=== PATIENT | male | born 1940 | race Caucasian/White ===

== ENCOUNTER 2017-01-03 07:16 | Emergency (ER) | payer MEDICARE, OTHER ==
[~2017-01-03] VITALS: Ht 177.8 cm; Wt 79.4 kg
[~2017-01-03 07:16] MED LIST: ASPI81CH43 GT; EZET10TA38 OR; OMEPRAZOLE; SUCR1TAB OR
[2017-01-03] MEDS ORDERED: KETOROLAC TROMETH 30 MG/ML 1ML VIAL IV ONE (10:00)
[2017-01-03 10:51] LABS: Basophils # (auto) 0 uL; Basophils % (auto) 0.1 % (0.0-2.0); Eosinophils # (auto) 0 uL; Eosinophils % (auto) 0.4 % (0.0-7.0); Hematocrit 39.9 % (41.0-53.0); Hemoglobin 13.5 g/dL (13.5-17.5); Lymphocytes % (auto) 13.4 % (10.0-50.0); Mean Corpuscular Hemoglobin 29.3 pg (28.0-32.0); Mean Corpuscular Hgb Conc. 33.8 g/dL (32.0-36.0); Mean Corpuscular Volume 86.7 fL (80.0-100.0); Monocytes # (auto) 0.7 uL; Monocytes % (auto) 9.7 % (0.0-12.0); Neutrophils # (auto) 5.6 uL; Neutrophils % (auto) 76.4 % (37.0-80.0); Platelet Count (auto) 230 10^3/uL (140-450); Red Cell Distribution Width 13.7 % (11.6-16.0); White Blood Cell 7.3 10^3/uL (4.4-10.8)
[2017-01-03 11:20] LABS: Albumin 3.6 g/dL (3.4-5.0); Anion Gap 8 (5-15); BUN/Creatinine Ratio 17.9; Blood Urea Nitrogen 20 mg/dL (7-18); Carbon Dioxide 27 mmol/L (21-32); Chloride 104 mmol/L (98-107); GFR African American 82 mL/min; GFR Non-African American 68 mL/min; Glucose 207 mg/dL (74-106); Potassium 4.4 mmol/L (3.5-5.1); Sodium 139 mmol/L (136-145)
[2017-01-03 11:47] LABS: Alkaline Phosphatase 81 U/L (45-117); Aspartate Aminotransferase 11 U/L (15-37); Bilirubin, Total 0.6 mg/dL (0.2-1.0); Total Protein 7.3 g/dL (6.4-8.2)
[2017-01-03 11:49] VITALS: BP 123/71
[2017-01-03 12:54] LABS: Urine Bilirubin Negative (Negative); Urine Blood Negative /uL (Negative); Urine Color Yellow (Yellow); Urine Ketone Negative (Negative); Urine Mucus FEW (None Seen); Urine Nitrite Negative (Negative); Urine RBC <1 /hpf (0 - 3); Urine Urobilinogen Normal (Negative); Urine pH 6.5 (5.0-8.0)
[2017-01-03 12:55] LABS: Urine Glucose 4+ mg/dL (Normal)
== END 2017-01-03 12:36 | disposition home or self-care (01) ==
LOC: ER 07:16
DX: K80.80 Other cholelithiasis without obstruction (principal); K21.9 Gastro-esophageal reflux disease without esophagitis; E78.5 Hyperlipidemia, unspecified; Z79.82 Long term (current) use of aspirin; Z79.899 Other long term (current) drug therapy
CPT/HCPCS: 36415; 71010; 74176; 80053; 81001; 84484; 85025; 93005

== ENCOUNTER → 2018-05-31 | Outpatient (CLI) | payer MEDICARE, OTHER ==
[~2018-05-31] MED LIST changes: +BUPIVACAINE 0.25% INJ 50ML VIAL ONE; +IOHEXOL 300 MG/ML 100ML BOTTLE IJ ONE; +LIDOCAINE 2% (LOCAL ANESTH.) PF 5ml SDV ONE; +methylPREDNISolone ACETATE 80 MG/ML VL ONE
== END | disposition home or self-care (01) ==
LOC: XYW 11:28
PROVIDERS: ATTEND Orthopaedic Surgery Adult Reconstructive Orthopaedic Surgery
DX: M12.811 Other specific arthropathies, not elsewhere classified, right shoulder (principal)
CPT/HCPCS: 73020; J1040; J2001; J3490; Q9967

== ENCOUNTER → 2019-12-03 | Outpatient (CLI) | payer MEDICARE, OTHER ==
[~2019-12-03] MED LIST changes: -BUPIVACAINE 0.25% INJ 50ML VIAL ONE; +EZET10TA24 OR; -EZET10TA38 OR; -IOHEXOL 300 MG/ML 100ML BOTTLE IJ ONE; -LIDOCAINE 2% (LOCAL ANESTH.) PF 5ml SDV ONE; -methylPREDNISolone ACETATE 80 MG/ML VL ONE
== END | disposition home or self-care (01) ==
LOC: XY 09:01
PROVIDERS: ATTEND Psychiatry & Neurology Neurology
DX: I65.23 Occlusion and stenosis of bilateral carotid arteries (principal); I63.9 Cerebral infarction, unspecified
CPT/HCPCS: 93886

== ENCOUNTER → 2019-12-27 | Outpatient (CLI) | payer MEDICARE, OTHER | END | disposition home or self-care (01) | LOC: XYW 08:42 | PROVIDERS: ATTEND Psychiatry & Neurology Neurology | DX: I08.2 Rheumatic disorders of both aortic and tricuspid valves (principal); I63.9 Cerebral infarction, unspecified | CPT/HCPCS: 93306 ==

== ENCOUNTER → 2020-02-26 | Outpatient (CLI) | payer MEDICARE, OTHER ==
[2020-02-26 16:29] LABS: Folate (Folic Acid) > 24.00 ng/mL (5.38-24)
== END | disposition home or self-care (01) ==
LOC: LAB 15:04
PROVIDERS: ATTEND Psychiatry & Neurology Neurology
DX: G62.9 Polyneuropathy, unspecified (principal)
CPT/HCPCS: 82607; 82746; 84155; 84165

== ENCOUNTER 2022-05-12 16:10 | Inpatient (IN) | payer MEDICARE, OTHER ==
[~2022-05-12] VITALS: Ht 177.8 cm; Wt 86.0 kg
[2022-05-12 17:34] LABS: Basophils # (auto) 0 10 ^3/uL (0-0.2); Basophils % (auto) 0.6 % (0.0-2.0); Eosinophils # (auto) 0.1 10 ^3/uL (0-0.8); Eosinophils % (auto) 1.8 % (0.0-7.0); Hematocrit 37.8 % (41.0-53.0); Hemoglobin 12.9 g/dL (13.5-17.5); Lymphocytes % (auto) 18.8 % (10.0-50.0); Mean Corpuscular Hemoglobin 29.7 pg (28.0-32.0); Mean Corpuscular Volume 87.3 fL (80.0-100.0); Monocytes # (auto) 0.5 10 ^3/uL (0-1.3); Monocytes % (auto) 9.4 % (0.0-12.0); Neutrophils # (auto) 3.6 10 ^3/uL (1.6-8.6); Neutrophils % (auto) 69.4 % (37.0-80.0); Nucleated Red Blood Cells % 0.1 %; Red Blood Cells 4.33 10^6/uL (4.5-5.90); Red Cell Distribution Width 14.1 % (11.8-14.3); White Blood Cell 5.2 10^3/uL (4.4-10.8)
[2022-05-12 17:52] LABS: Albumin 3.8 g/dL (3.4-5.0); BUN/Creatinine Ratio 25.2; Calcium 9.3 mg/dL (8.5-10.1); Magnesium 2.2 mg/dL (1.6-2.6); Potassium 4.7 mmol/L (3.5-5.1)
[2022-05-12 17:56] LABS: Bilirubin, Total 0.4 mg/dL (0.2-1.0); Total Protein 6.7 g/dL (6.4-8.2)
[2022-05-12] MEDS ORDERED: NITROGLYCERIN 0.4 MG SL TAB SL PRN (19:00)
[2022-05-12] MEDS ORDERED: HYDROcodone-ACET 5/325MG TAB PO PRN (19:00)
[2022-05-12] MEDS ORDERED: ONDANSETRON HCL 4 MG/2 ML VIAL IV PRN (19:00)
[2022-05-12] MEDS ORDERED: DOCUSATE SOD 100 MG CAP PO PRN (19:00)
[2022-05-12] MEDS ORDERED: ACETAMINOPHEN 325 MG TAB PO PRN (19:00)
[2022-05-12] MEDS ORDERED: MORPHINE SULFATE INJ 2 MG/ml SYRG IV PRN ×2 (19:00)
[2022-05-12] MEDS ORDERED: SODIUM CHLORIDE 0.9% 1,000 ML IV ONE (19:30)
[2022-05-12] MEDS: SODIUM CHLOR 0.9% PF (SALINE LOCK) 10ML VIAL/SYR IV SCH (22:00)
[2022-05-12 22:20] LABS: Urine WBC None Seen /hpf (0 - 3)
[2022-05-12 22:30] LABS: Urine Bacteria NONE SEEN /hpf (None Seen); Urine Blood Negative /uL (Negative); Urine Specific Gravity 1.016 (1.001-1.035)
[2022-05-12] MEDS: ATORVASTATIN 20 MG TAB PO SCH (22:37)
[2022-05-12 23:14] VITALS: BP 152/72
[2022-05-12] MEDS ORDERED: ATOR20TA50 PO (23:23)
[2022-05-12] MEDS ORDERED: SITA100T7 PO (23:23)
[2022-05-12] MEDS ORDERED: LOSA-39 PO (23:23)
[2022-05-12] MEDS ORDERED: GLIP10TA9 PO (23:23)
[2022-05-12] MEDS ORDERED: HYDR25TA5 PO (23:23)
[2022-05-13 05:07] VITALS: BP 157/87
[2022-05-13] MEDS: SODIUM CHLOR 0.9% PF (SALINE LOCK) 10ML VIAL/SYR IV SCH ×3 (07:14→22:00)
[2022-05-13 09:00] VITALS: BP 130/69
[2022-05-13 09:21] LABS: Calcium 8.6 mg/dL (8.5-10.1); Potassium 4.2 mmol/L (3.5-5.1)
[2022-05-13 09:25] LABS: BUN/Creatinine Ratio 18.1
[2022-05-13] MEDS ORDERED: LOSARTAN POTASSIUM 25 MG TAB PO SCH (10:00)
[2022-05-13 10:24] LABS: Folate (Folic Acid) > 24.00 ng/mL (5.38-24)
[2022-05-13 13:00] VITALS: BP 142/73
[2022-05-13] MEDS ORDERED: LOSARTAN POTASSIUM 50 MG TAB PO ONE (15:45)
[2022-05-13] MEDS ORDERED: DEXTROSE (50%) 50ML SYRG IV PRN (15:45)
[2022-05-13] MEDS ORDERED: ATORVASTATIN 20 MG TAB PO ONE (15:45)
[2022-05-13] MEDS ORDERED: ASPirin-EC 81 mg tab PO ONE (16:00)
[2022-05-13 17:00] VITALS: BP 138/69
[2022-05-13] MEDS: ACCU-CHEK COMFORT CURVE STRIP VI SCH ×2 (17:16→22:00)
[2022-05-13] MEDS: InsuLIN REG 1unit/0.01ml Soln (100units/ml) SC SCH ×2 (17:17→22:00)
[2022-05-13 22:00] VITALS: BP 140/73
[2022-05-13] MEDS ORDERED: ATORVASTATIN 20 MG TAB PO SCH (22:00)
[2022-05-13] MEDS: ATORVASTATIN 20 MG TAB PO SCH (22:49)
[2022-05-14 05:00] VITALS: BP 123/63
[2022-05-14 06:39] LABS: Calcium 8.3 mg/dL (8.5-10.1); Potassium 3.9 mmol/L (3.5-5.1)
[2022-05-14] MEDS: SODIUM CHLOR 0.9% PF (SALINE LOCK) 10ML VIAL/SYR IV SCH ×3 (06:40→22:06)
[2022-05-14] MEDS: ACCU-CHEK COMFORT CURVE STRIP VI SCH ×4 (06:40→22:19)
[2022-05-14 06:41] LABS: BUN/Creatinine Ratio 26.9
[2022-05-14] MEDS: InsuLIN REG 1unit/0.01ml Soln (100units/ml) SC SCH ×4 (06:41→22:17)
[2022-05-14 07:30] VITALS: BP 130/73
[2022-05-14] MEDS ORDERED: ADENOSINE 69 MG in GIVE UN-DILUTED 0 ML IV ONE (08:00)
[2022-05-14 09:00] VITALS: BP 133/70
[2022-05-14] MEDS: ASPirin-EC 81 mg tab PO SCH (10:39)
[2022-05-14] MEDS: LOSARTAN POTASSIUM 50 MG TAB PO SCH (10:40)
[2022-05-14 12:40] VITALS: BP 150/62
[2022-05-14 17:00] VITALS: BP 130/66
[2022-05-14 22:00] VITALS: BP 158/68
[2022-05-14] MEDS: ATORVASTATIN 20 MG TAB PO SCH (22:06)
[2022-05-15 05:00] VITALS: BP 150/84
[2022-05-15] MEDS: SODIUM CHLOR 0.9% PF (SALINE LOCK) 10ML VIAL/SYR IV SCH ×2 (05:43→13:38)
[2022-05-15] MEDS: ACCU-CHEK COMFORT CURVE STRIP VI SCH ×2 (06:15→12:25)
[2022-05-15] MEDS: InsuLIN REG 1unit/0.01ml Soln (100units/ml) SC SCH ×2 (06:28→12:25)
[2022-05-15 07:00] VITALS: BP 133/70
[2022-05-15 07:30] VITALS: BP 133/70
[2022-05-15 09:00] VITALS: BP 131/62
[2022-05-15] MEDS: LOSARTAN POTASSIUM 50 MG TAB PO SCH (09:36)
[2022-05-15] MEDS: ASPirin-EC 81 mg tab PO SCH (09:36)
[2022-05-15] MEDS ORDERED: METOPROLOL SUCCINATE XL 50 MG TAB PO ONE (11:15)
[2022-05-15 13:00] VITALS: BP 162/74
[2022-05-15] MEDS ORDERED: METO-6 PO (13:18)
[2022-05-15 14:52] VITALS: BP 131/62
[2022-05-16] MEDS ORDERED: METOPROLOL SUCCINATE XL 50 MG TAB PO SCH (10:00)
== END 2022-05-15 16:43 | disposition home or self-care (01) | DRG 308 ==
LOC: ER 16:10 → TELE 18:52 → TELE-WESTW 23:10
PROVIDERS: ADMIT Internal Medicine; ATTEND Internal Medicine
DX: I49.3 Ventricular premature depolarization (principal); N17.0 Acute kidney failure with tubular necrosis; I47.20 Ventricular tachycardia, unspecified; E11.22 Type 2 diabetes mellitus with diabetic chronic kidney disease; M25.551 Pain in right hip; Z20.822 Contact with and (suspected) exposure to COVID-19; E03.9 Hypothyroidism, unspecified; R55 Syncope and collapse; E78.5 Hyperlipidemia, unspecified; I10 Essential (primary) hypertension; K21.9 Gastro-esophageal reflux disease without esophagitis; Z79.82 Long term (current) use of aspirin; Z79.899 Other long term (current) drug therapy; Z87.891 Personal history of nicotine dependence
CPT/HCPCS: 36415; 71045; 72100; 73502; 78452; 80048; 80053; 80061; 81001; 82306; 82607; 82746; 82962; 83036; 83735; 83880; 84439; 84443; 84484; 85025; 87426; 93005; 93017; 93306; 96361; 96374; G0378; J0153; J1815